=== PATIENT | male | born 1975 | race Caucasian/White ===

== ENCOUNTER 2017-10-07 00:50 | Inpatient (IN) ==
[2017-10-07] MEDS ORDERED: Isovue-370 500 ML INFUS..BTL IV ONE (03:15)
[2017-10-07] MEDS ORDERED: *HR* FentaNYL (PF) 100 MCG/2 ML VIAL IVP ONE (03:15)
[2017-10-07] MEDS ORDERED: Ondansetron 4 MG/2 ML VIAL IVP ONE ×2 (03:16→17:32)
[2017-10-07] MEDS ORDERED: 0.9 % Sodium Chloride 1,000 ML IVC ONE (03:16)
--- NOTE | 2017-10-07 03:19 | Emergency Department Note ---
Disposition Clinical Impression: Acute appendicitis with appendiceal abscess, Renal mass Abdominal pain Qualifiers: Abdominal location: right lower quadrant Qualified Code(s): R10.31 - Right lower quadrant pain Disposition: Admitted As Inpatient Condition: Good Referrals: Leonel Bishop MD [Primary Care Provider] - Forms: ED Satisfaction Letter, Work/School Release Time of Disposition: 04:45 Abdominal Pain HPI - General Chief Complaint: ED Abdominal Pain Stated Complaint: lower right quadrant pain Time Seen by Provider: 10/07/17 03:09 Source: patient Mode of arrival: ambulatory Limitations: no limitations Nursing Notes Reviewed: Yes Vital Signs Reviewed: Yes - History of Present Illness HPI Narrative: 42-year-old male with a history of hypertension presents for evaluation of abdominal pain. Patient states symptom onset was approximately 3 days ago and is noted to be epigastric. Patient subsequently felt nauseous and had episodes of emesis. Patient states that over the past 2 days the pain is now migrated to his right lower quadrant. Patient notes pain worse with palpation. Patient notes persistent emesis. Patient's had decreased oral intake related to the nausea vomiting. Patient also had some diarrhea today. Denies any fevers but does state that he had some sweats. Denies any chest pain or shortness of breath. Denies any urinary complaints. Patient denies a history of any abdominal surgeries. Patient states his last meal was approximately 10:00 last night. Pain Scale: 5 - Related Data Home Medications Medication Instructions Recorded Confirmed hydroCHLOROthiazide 25 mg PO DAILY 05/31/17 05/31/17 [Hydrochlorothiazide] Previous Rx's Medication Instructions Recorded Amoxicillin/Clavulanate [Augmentin] 875 mg PO BIDWM #20 tablet 05/31/17 Fluticasone Propionate Nasal 120 spray NS DAILY #1 bottle 05/31/17 [Flonase] GuaiFENesin/Dextromethorphan [Gs 5 ml PO QID #118 ml 05/31/17 Tussin Dm Max Liquid] Allergies Allergy/AdvReac Type Severity Reaction Status Date / Time No Known Allergies Allergy Verified 05/31/17 10:19 All systems ED: reviewed and negative except as stated. Constitutional: Denies: fever Cardiovascular: Denies: chest pain Respiratory: Denies: cough, dyspnea Gastrointestinal: Reports: abdominal pain, nausea, vomiting, diarrhea Abdominal Pain PMH - Past Medical History Medical history: Reports: hypertension Male Surgical History: Reports: no surgical history Psychiatric history: Reports: no psych history - Social History Smoking status: Never smoker Alcohol use: Reports: none Drug use: Reports: none Physical Exam - General Limitations: no limitations General appearance: alert, in no apparent distress, obese - Head Head exam: atraumatic, normocephalic, normal inspection - Eye Eye exam: Present: normal appearance, PERRL, EOMI - ENT ENT exam: normal exam, normal oropharynx, mucous membranes moist - Neck Neck exam: Present: normal inspection - Chest Chest inspection: Present: normal inspection, symmetric chest wall rise - Respiratory Respiratory exam: Present: normal lung sounds bilaterally - Cardiovascular Cardiovascular exam: Present: regular rate, normal rhythm. Absent: systolic murmur - Abdominal Exam Abdominal exam: Present: soft, tenderness, tenderness at McBurney's Point. Absent: guarding, rebound - Extremities Exam Extremities exam: Present: normal inspection. Absent: pedal edema - Neurological Exam Neurological exam: Present: alert, oriented X3 - Skin Skin exam: Present: warm, dry, intact, normal color Course Course Narrative: Patient has right lower quadrant tenderness. 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 Patient will get basic labs, IV pain medicine and antiemetics. Patient also get a CT scan of the abdomen and pelvis. - Reevaluation(s) Reevaluation #1: Patient seen and examined. Patient states the pain medicine has improved his symptoms. Still has some tenderness in the right lower quadrant. Time: 04:10 Reevaluation #2: Plan of care was discussed with the patient. Patient's abdominal exam is unchanged. Did address the concerns of likely renal cell carcinoma. All questions were answered at that time. Time: 04:50 - Consultations Consultation #1: Discussed the case with Dr. Regan who accepted the patient onto his service. Time: 04:44 Vital Signs Temperature 98.3 F 10/07/17 01:03 Pulse Rate 105 10/07/17 01:03 Respiratory Rate 14 10/07/17 01:03 Blood Pressure 116/77 10/07/17 01:03 O2 Sat by Pulse Oximetry 94 10/07/17 01:03 Temperature 98.3 F 10/07/17 01:03 Pulse Rate 97 10/07/17 04:28 Respiratory Rate 18 10/07/17 04:28 Blood Pressure 103/61 10/07/17 04:28 O2 Sat by Pulse Oximetry 96 10/07/17 04:28 Oxygen Delivery Oxygen Delivery Room Air Abdominal Pain - MDM Narrative Medical decision making narrative: Patient presented for concerns of an acute appendicitis. Patient does have evidence of periappendiceal abscess. Patient's pain was treated in emergency department. Antibiotics were initiated in the emergency department. Patient incidentally also had a renal mass which was concerning for renal cell carcinoma. This information was discussed and relayed with the patient. Discussed the case with the on-call surgeon who accepted the patient onto his service. Patient's vitals are stable in the emergency department. Patient's abdomen is not peritoneal but is tenderness over McBurney's. - Lab Data Lab results reviewed: Yes I reviewed the patient's lab results. Result diagrams: 10/07/17 03:38 10/07/17 03:38 Lab Results 10/07/17 10/07/17 10/07/17 Range/Units 02:30 03:38 03:38 WBC 19.8 H (4.3-11.1) K/mcL RBC 5.21 (4.19-5.50) M/mcL Hgb 15.6 (12.9-16.9) g/dL Hct 43.3 (37.5-50.1) % MCV 83.1 (83.0-100.0) fL MCH 29.9 (28.0-33.3) pg MCHC 36.0 H (31.6-35.5) g/dL RDW 11.9 (11.5-14.5) % Plt Count 339 (140-400) K/mcL MPV 9.5 (9.4-12.4) fL Immature Gran % 0.8 (0-4) % Seg Neutrophils % 85.0 % Lymphocytes % 6.1 % Monocytes % 7.8 % Eosinophils % 0.1 % Basophils % 0.2 % Neutrophils # 16.9 H (1.6-8.9) K/mcL Lymphocytes # 1.2 (0.6-4.6) K/mcL Monocytes # 1.5 H (0.0-1.3) K/mcL Eosinophils # 0.0 (0.0-0.6) K/mcL Basophils # 0.0 (0.0-0.2) K/mcL Sodium 127 L (136-145) mEq/L Potassium 3.2 L (3.5-5.1) mEq/L Chloride 90 L (98-107) mEq/L Carbon Dioxide 22 L (23-29) mEq/L BUN 32 H (6-20) mg/dL Creatinine 1.27 (0.70-1.30) mg/dL Est GFR ( Amer) > 60 (> 60) Est GFR (Non-Af Amer) > 60 (> 60) BUN/Creatinine Ratio 25 (6-26) Glucose 183 H (70-105) mg/dL Calculated Osmolality 276 L (280-300) Calcium 9.2 (8.6-10.3) mg/dL Total Bilirubin 1.0 (0.3-1.0) mg/dL Direct Bilirubin 0.4 H (0.0-0.2) mg/dL Indirect Bilirubin 0.6 (0.0-1.2) mg/dL AST 15 (13-39) Units/L ALT 29 (7-52) Units/L Alkaline Phosphatase 67 (34-104) Units/L Serum Total Protein 7.4 (6.4-8.9) g/dL Albumin 3.9 (3.5-5.7) g/dL Globulin 3.5 (2.4-3.5) g/dL Albumin/Globulin Ratio 1.1 (1.1-2.2) Lipase 9 L (11-82) Units/L Urine Color Dark Yellow (Yellow) Urine Clarity Clear (Clear) Urine pH 5.5 (5.0-8.0) pH Units Ur Specific Success 1.025 (1.010-1.025) Urine Protein 30 H (Neg-Trace) mg/dL Urine Glucose (UA) Normal (Normal) mg/dL Urine Ketones 15 H (Negative) mg/dL Urine Blood Negative (Negative) Urine Nitrite Negative (Negative) Urine Bilirubin Moderate H (Negative) Urine Urobilinogen Normal (Normal) mg/dL Ur Leukocyte Esterase Negative (Negative) Ur Culture Indicated? NO (NO) - Radiology Data Radiology results reviewed: Yes I reviewed the patient's radiology results. Abdomen/Pelvis CT 10/07/17 03:15 IMPRESSION: Findings consistent with acute appendicitis with appendicular abscess and periappendiceal abscess measuring 3.2 x 2.6 x 2.3 cm in size. Left upper pole renal cortical mass measuring 7.9 x 7.3 x 7.4 cm in size. This should be treated as a renal cell carcinoma until proven otherwise. Hepatic steatosis with focal fatty sparing at the gallbladder fossa. Critical results were called by Dr. Nicho Spicer MD to Evelio Alex on 10/07/2017 at 04:36. D/ / Nicho Spicer MD / Nicho Spicer MD Interpreting Provider: MD Marimar Perez - Marimar Situation: Demographics Background: Presenting Complaint Assessment: Vital Signs, Patient/Family Expectation Recommendation: Barrier(s) to disposition, Recommendation based on pending studies, treatments, or consults S.B.APaulina Report Given to: Dr. Jass Minaya Repor Time: 04:43
[2017-10-07 03:41] LABS: Bilirubin,Urine Moderate (Negative); Blood,Urine Negative (Negative); Color,Urine Dark Yellow (Yellow); Glucose,Urine (UA) Normal (Normal); Ketones,Urine 15 mg/dL (Negative); Leukocyte Esterase,Urine Negative (Negative); Nitrite,Urine Negative (Negative); PH,Urine 5.5 pH Units (5.0-8.0); Protein,Urine 30 mg/dL (Neg-Trace); Specific Gravity,Urine 1.025 (1.010-1.025); Urobilinogen,Urine Normal (Normal)
[2017-10-07 03:42] LABS: Clarity,Urine Clear (Clear)
[2017-10-07 03:54] LABS: Basophils % 0.2 %; Eosinophils % 0.1 %; Hematocrit 43.3 % (37.5-50.1); Hemoglobin 15.6 g/dL (12.9-16.9); Immature Granulocytes % 0.8 % (0-4); Lymphocytes # 1.2 K/mcL (0.6-4.6); Lymphocytes % 6.1 %; Mean Corpuscular Hemoglobin 29.9 pg (28.0-33.3); Mean Corpuscular Volume 83.1 fL (83.0-100.0); Mean Platelet Volume 9.5 fL (9.4-12.4); Monocytes # 1.5 K/mcL (0.0-1.3); Monocytes % 7.8 %; Neutrophils # 16.9 K/mcL (1.6-8.9); Platelet Count 339 K/mcL (140-400); Red Blood Count 5.21 M/mcL (4.19-5.50); Red Cell Distribution Width 11.9 % (11.5-14.5)
[2017-10-07 04:06] LABS: Alanine Aminotransferase 29 Units/L (7-52); Albumin 3.9 g/dL (3.5-5.7); Albumin/Globulin Ratio 1.1 (1.1-2.2); Alkaline Phosphatase 67 Units/L (34-104); Aspartate Amino Transferase 15 Units/L (13-39); BUN/Creatinine Ratio 25 (6-26); Bilirubin,Direct 0.4 mg/dL (0.0-0.2); Bilirubin,Indirect 0.6 mg/dL (0.0-1.2); Blood Urea Nitrogen 32 mg/dL (6-20); Calcium 9.2 mg/dL (8.6-10.3); Carbon Dioxide 22 mEq/L (23-29); Chloride 90 mEq/L (98-107); Globulin 3.5 g/dL (2.4-3.5); Glucose 183 mg/dL (70-105); Lipase 9 Units/L (11-82); Osmolality,Calculated 276 (280-300); Potassium 3.2 mEq/L (3.5-5.1); Sodium 127 mEq/L (136-145); Total Protein 7.4 g/dL (6.4-8.9); eGFR For African Americans > 60 (> 60); eGFR For Non-African Americans > 60 (> 60)
[2017-10-07] MEDS ORDERED: cefOXitin 2,000 MG in Water for inj. (sterile) 20 ML 20 ML IVPB ONE (04:25)
[2017-10-07] MEDS ORDERED: Piperacillin/Tazobactam 3.375 GM in 0.9 % Sodium Chloride Mini Bag 100 ML IVPB ONE (04:42)
[2017-10-07] MEDS ORDERED: 0.9 % Sodium Chloride 500 ML IVC ONE (05:42)
[2017-10-07] MEDS ORDERED: 0.9 % Sodium Chloride 1,000 ML IVC SCH (05:45)
[2017-10-07] MEDS: Ondansetron 4 MG/2 ML VIAL IVP PRN ×3 (06:32→15:43)
[2017-10-07] MEDS: *HR* OxyCODONE Immed Rel 5 MG TABLET PO PRN ×3 (06:33→15:43)
--- NOTE | 2017-10-07 07:24 | Emergency Department Note ---
Disposition Clinical Impression: Acute appendicitis with appendiceal abscess, Renal mass Abdominal pain Qualifiers: Abdominal location: right lower quadrant Qualified Code(s): R10.31 - Right lower quadrant pain Disposition: Admitted As Inpatient Condition: Good General Adult HPI - General Chief complaint: ED Abdominal Pain Stated complaint: lower right quadrant pain Time Seen by Provider: 10/07/17 03:09 Source: patient Mode of arrival: ambulatory Limitations: no limitations Nursing Notes Reviewed: Yes Vital Signs Reviewed: Yes - History of Present Illness Pain Scale: 2 - Related Data Home Medications Medication Instructions Recorded Confirmed Lisinopril/Hydrochlorothiazide 2 each PO DAILY 10/07/17 10/07/17 [Zestoretic 20-12.5 mg Tablet] Allergies Allergy/AdvReac Type Severity Reaction Status Date / Time No Known Allergies Allergy Verified 05/31/17 10:19 Constitutional: Denies: fever Cardiovascular: Denies: chest pain Respiratory: Denies: cough, dyspnea Gastrointestinal: Reports: abdominal pain, nausea, vomiting, diarrhea Past Medical History - Past Medical History Medical history: Reports: hypertension Surgical history: Reports: no surgical history Psychiatric history: Reports: no psych history - Social History Smoking Status: Never smoker Smokeless Tobacco Status: No Alcohol use: Reports: none Drug use: Reports: none Physical Exam - General Limitations: no limitations General appearance: alert, in no apparent distress, obese Course Vital Signs Temperature 98.3 F 10/07/17 01:03 Pulse Rate 105 10/07/17 01:03 Respiratory Rate 14 10/07/17 01:03 Blood Pressure 116/77 10/07/17 01:03 O2 Sat by Pulse Oximetry 94 10/07/17 01:03 Temperature 98 F 10/07/17 05:28 Pulse Rate 100 10/07/17 05:28 Respiratory Rate 16 10/07/17 05:28 Blood Pressure 109/62 10/07/17 05:28 O2 Sat by Pulse Oximetry 95 10/07/17 05:28 Oxygen Delivery Oxygen Delivery Room Air Medical Decision Making - Lab Data Result diagrams: 10/07/17 03:38 10/07/17 03:38 Lab Results 10/07/17 10/07/17 10/07/17 Range/Units 02:30 03:38 03:38 WBC 19.8 H (4.3-11.1) K/mcL RBC 5.21 (4.19-5.50) M/mcL Hgb 15.6 (12.9-16.9) g/dL Hct 43.3 (37.5-50.1) % MCV 83.1 (83.0-100.0) fL MCH 29.9 (28.0-33.3) pg MCHC 36.0 H (31.6-35.5) g/dL RDW 11.9 (11.5-14.5) % Plt Count 339 (140-400) K/mcL MPV 9.5 (9.4-12.4) fL Immature Gran % 0.8 (0-4) % Seg Neutrophils % 85.0 % Lymphocytes % 6.1 % Monocytes % 7.8 % Eosinophils % 0.1 % Basophils % 0.2 % Neutrophils # 16.9 H (1.6-8.9) K/mcL Lymphocytes # 1.2 (0.6-4.6) K/mcL Monocytes # 1.5 H (0.0-1.3) K/mcL Eosinophils # 0.0 (0.0-0.6) K/mcL Basophils # 0.0 (0.0-0.2) K/mcL Sodium 127 L (136-145) mEq/L Potassium 3.2 L (3.5-5.1) mEq/L Chloride 90 L (98-107) mEq/L Carbon Dioxide 22 L (23-29) mEq/L BUN 32 H (6-20) mg/dL Creatinine 1.27 (0.70-1.30) mg/dL Est GFR ( Amer) > 60 (> 60) Est GFR (Non-Af Amer) > 60 (> 60) BUN/Creatinine Ratio 25 (6-26) Glucose 183 H (70-105) mg/dL Calculated Osmolality 276 L (280-300) Calcium 9.2 (8.6-10.3) mg/dL Total Bilirubin 1.0 (0.3-1.0) mg/dL Direct Bilirubin 0.4 H (0.0-0.2) mg/dL Indirect Bilirubin 0.6 (0.0-1.2) mg/dL AST 15 (13-39) Units/L ALT 29 (7-52) Units/L Alkaline Phosphatase 67 (34-104) Units/L Serum Total Protein 7.4 (6.4-8.9) g/dL Albumin 3.9 (3.5-5.7) g/dL Globulin 3.5 (2.4-3.5) g/dL Albumin/Globulin Ratio 1.1 (1.1-2.2) Lipase 9 L (11-82) Units/L Urine Color Dark Yellow (Yellow) Urine Clarity Clear (Clear) Urine pH 5.5 (5.0-8.0) pH Units Ur Specific Gordon 1.025 (1.010-1.025) Urine Protein 30 H (Neg-Trace) mg/dL Urine Glucose (UA) Normal (Normal) mg/dL Urine Ketones 15 H (Negative) mg/dL Urine Blood Negative (Negative) Urine Nitrite Negative (Negative) Urine Bilirubin Moderate H (Negative) Urine Urobilinogen Normal (Normal) mg/dL Ur Leukocyte Esterase Negative (Negative) Ur Culture Indicated? NO (NO) Critical Care Time Critical Care Time: Yes Total Critical Care Time: 35 Attestation: Critical care performed: Time is exclusive of separately billable procedures. Time includes: direct patient care, patient reassessment, coordination of patient care, interpretation of data (laboratory data, radiology data, and respiratory data), review of patient's medical records, medical consultation and documentation of patient care. Procedures included in critical care time: Procedures excluded from critical care time: Attestation Statement - Attestation Attestation: ICarlos MD, personally evaluated this patient and discussed their management with the resident physician. I reviewed the resident's note and agree with the documented findings, medical decision making, and plan of care. 42-year-old male presents to the emergency department with a complaint of abdominal pain which started 4 days ago. Pain was initially in the periumbilical area and then 3 days ago migrated to the right lower quadrant. The pain is been constant since. There has been some nausea and vomiting and anorexia. No known fever. No melena, hematemesis, or hematochezia. No hematuria or dysuria. No flank pain. No prior abdominal surgeries. On examination patient is a well-developed obese male in no acute distress. He is alert and oriented 3. There is no cyanosis or diaphoresis. Breath sounds are clear and equal bilaterally. Heart regular rate and rhythm. Abdomen is soft with normal bowel sounds. There is mild to moderate tenderness on direct palpation in the right lower quadrant with no ordering or rebound tenderness. No CVA tenderness. Labs reviewed. WBC 19.8. CT of the abdomen and pelvis shows acute appendicitis with a periappendiceal abscess. CT also showed a large left renal mass, likely renal cell carcinoma. Dr. Alex discussed the results of the CT with the patient and family. The surgeon unionmelt operator, Dr. Regan, was consulted and accepted admission of the patient to his service. IV antibiotics initiated.
--- NOTE | 2017-10-07 10:02 | General Surg History&Physical ---
Date of Encounter: 10/07/17 Time of Encounter: 09:00 History of Present Illness Chief complaint: Acute appendicitis HPI: Mr. Frias is a 42 year old male referred to surgical services after presenting to the [facility] ED with 4-5 day history of progressive right lower quadrant abdominal pain. Symptoms started vaguely mid abdomen but slowly increased in severity and and migrated to the lower right lower quadrant. The patient admits to multiple episodes of emesis in the last few days The patient presented to the emergency department for further evaluation and treatment. This evaluation included examination, lab work and CT of the abdomen and pelvis. The patient had focal tenderness in the right lower quadrant, leukocytosis of 19.8 with 16.9% neutrophils, sodium of 127, potassium 3.2, BUN 32 and a creatinine of 1.27. CT abdomen and pelvis demonstrated diffuse hepatic steatosis with focal fatty sparing near the gallbladder fossa; left upper pole renal mass measuring 7.9 x 7.3 x 7.4 cm, and a dilated appendix measuring 12 mm with extensive periappendiceal inflammatory changes and fat stranding. Sigmoid diverticulosis without inflammation was also noted. These findings are consistent with acute appendicitis prompting the surgical referral. Past medical history: Obesity, hypertension Surgical history: Tonsillectomy Allergies no known drug allergies Medications: Lisinopril Social history: Patient is , lives this past; he has never smoked, he denies alcohol or illicit drug use. Physical examination: Age-appropriate morbidly obese patient, resting comfortably in his hospital bed. The patient has been afebrile and hemodynamically stable since presentation to the emergency room. Current temperature 97.5, pulse 99, respirations 16, blood pressure 116/74. SPO2 on room air 95% The patient is 1.8 m tall, 146.2 kg, BMI 45.0 Skin is warm, without obvious jaundice Cardiac: Rate was regular, approximately 100 bpm, no audible murmurs Lungs: Clear; no abdominal pain on deep inspiration Abdomen protuberant soft with tenderness in the right lower quadrant. No detected intra-abdominal masses. No rebound. Bowel sounds were hypoactive Extremities without clubbing, cyanosis or edema. CT abdomen/pelvis reviewed with Caryn Radiology Impression: 42-year-old male with acute appendicitis and concomitant findings of a left renal mass suggestive of neoplasm. Hypertension Obesity with hepatic steatosis The patient's significant electrolyte abnormalities are likely related to the several day history of illness, poor oral intake as well as nausea and vomiting. These abnormalities are expected to resolve following the appendectomy and control the patient's nausea/vomiting. The immediate risk to the patient is acute appendicitis. This was discussed in detail. I have recommended surgery. The patient is a reasonable candidate for laparoscopic appendectomy but understands an open appendectomy may become necessary. Risks of surgery include hemorrhage, infection, intra-abdominal abscess, injury to adjacent structures, pneumonia , respiratory failure, and cardiac risks such as dysrhythmia or ID. Alternative therapy includes IV antibiotics and serial abdominal exams. This may allow the acute inflammatory changes to resolve but this is associated with increased risk of perforation as well as recurrent appendicitis in the future. The renal mass was discussed and will be addressed in the postoperative period following the patient's appendectomy. The patient and his attendant family have expressed understanding and are willing to proceed with surgery. Consent has been obtained. Past Med Surg Social Fam HX - Past Medical History Medical history: hypertension Psychiatric history: no psych history - Past Surgical History Surgical History: no surgical history - Social History Smoking Status: Never smoker Smokeless Tobacco Status: No Alcohol use: none Drug use: none Medications and Allergies Lisinopril/Hydrochlorothiazide [Zestoretic 20-12.5 mg Tablet] 2 each PO DAILY [History] 3 Allergy/AdvReac Type Severity Reaction Status Date / Time No Known Allergies Allergy Verified 05/31/17 10:19 Review of Systems All systems PM: The remainder of the systems were reviewed and are negative General Surgery Exam Initial Vital Signs Temp Pulse Resp BP Pulse Ox 98.3 F 105 14 116/77 94 10/07/17 01:03 10/07/17 01:03 10/07/17 01:03 10/07/17 01:03 10/07/17 01:03 Results - Labs 10/07/17 03:38 10/07/17 03:38 Abnormal lab results WBC 19.8 K/mcL (4.3-11.1) H 10/07/17 03:38 MCHC 36.0 g/dL (31.6-35.5) H 10/07/17 03:38 Neutrophils # 16.9 K/mcL (1.6-8.9) H 10/07/17 03:38 Monocytes # 1.5 K/mcL (0.0-1.3) H 10/07/17 03:38 Sodium 127 mEq/L (136-145) L 10/07/17 03:38 Potassium 3.2 mEq/L (3.5-5.1) L 10/07/17 03:38 Chloride 90 mEq/L (98-107) L 10/07/17 03:38 Carbon Dioxide 22 mEq/L (23-29) L 10/07/17 03:38 BUN 32 mg/dL (6-20) H 10/07/17 03:38 Glucose 183 mg/dL (70-105) H 10/07/17 03:38 POC Glucose 151 mg/dL (70-99) H 10/07/17 05:32 Calculated Osmolality 276 (280-300) L 10/07/17 03:38 Direct Bilirubin 0.4 mg/dL (0.0-0.2) H 10/07/17 03:38 Lipase 9 Units/L (11-82) L 10/07/17 03:38 Urine Protein 30 mg/dL (Neg-Trace) H 10/07/17 02:30 Urine Ketones 15 mg/dL (Negative) H 10/07/17 02:30 Urine Bilirubin Moderate (Negative) H 10/07/17 02:30 All other labs normal.
[2017-10-07] MEDS ORDERED: Piperacillin/Tazobactam 3.375 GM in 0.9 % Sodium Chloride Mini Bag 100 ML IVPB SCH (13:00)
[2017-10-07] MEDS ORDERED: Bupivacaine/EPI 1:200k 0.25%PF 10 ML VIAL INFILT ONE (16:29)
[2017-10-07] MEDS ORDERED: *HR* FentaNYL (PF) 100 MCG/2 ML VIAL ONE (16:37)
[2017-10-07] MEDS ORDERED: *HR* Propofol 200 MG/20 ML VIAL IVP ONE (16:38)
[2017-10-07] MEDS ORDERED: *HR* Midazolam HCl 2 MG/2 ML VIAL ONE (16:38)
[2017-10-07] MEDS ORDERED: *HR* Rocuronium Bromide 50 MG/5 ML VIAL ONE (16:39)
[2017-10-07] MEDS ORDERED: Lidocaine -MPF 2% 2 ML VIAL ONE (16:39)
[2017-10-07] MEDS ORDERED: *HR* Succinylcholine 200 MG/10 ML VIAL IVP ONE (16:39)
[2017-10-07] MEDS ORDERED: Ondansetron 4 MG/2 ML VIAL ONE (16:41)
[2017-10-07] MEDS ORDERED: Dexamethasone 4 MG/ML VIAL ONE (16:41)
--- NOTE | 2017-10-07 16:58 | Anesthesia Evaluation PreOp ---
Date of Encounter: 10/07/17 Time of Encounter: 16:56 - Past History Planned Operation: Lap Appendectomy Cardiac History: HTN Pulmonary History: Snore, Gasp/choke asleep (Likely ALEX) WINDOW MACHINE OPERATOR History: Denies Any Significant HX Other Medical History: Denies Any Significant HX Anesthesia History: No Prior Anesthetic Complications, Past Anesthesia (Tonsils) Alcohol Use: none Drug use: none Medications and Allergies Lisinopril/Hydrochlorothiazide [Zestoretic 20-12.5 mg Tablet] 2 each PO DAILY [History] 3 Allergy/AdvReac Type Severity Reaction Status Date / Time No Known Allergies Allergy Verified 05/31/17 10:19 - Meds/Allergy Pre-op Review Medications Reviewed: Yes Allergies Reviewed: Yes Beta Blockers on Current Med List: No Anesthesia Results - Labs 10/07/17 03:38 10/07/17 03:38 Anesthesia Exam O2 Sat Height 1.8 m Weight 146.2 kg BMI 45 Vital Signs Temp Pulse Resp BP Pulse Ox 98.3 F 105 14 116/77 94 10/07/17 01:03 10/07/17 01:03 10/07/17 01:03 10/07/17 01:03 10/07/17 01:03 NPO (# of Hours): >8 - HEENT Pupil (Motor): Pupils equal Mallampati: II Teeth: Normal Oral Opening: Greater than 3 - WINDOW MACHINE OPERATOR LOC: Oriented - Cardiac Rhythm: Regular - Pulmonary Breath Sounds: bilateral Clear Anesthesia Assess/Plan ASA Score: 3 Modified [place] Bottom Scale for Level of Consciousness: Cooperative, oriented, and tranquil (Anxious) Anesthetic Plan: General Monitoring Plan: Standard Monitors Recovery Plan: PACU Anes Supervising Prov Stmt: Patient informed and consented. Risks, benefits, and alternatives discussed. Patient wishes to proceed.
[2017-10-07] MEDS ORDERED: *HR* PHENYLEPHRINE 1,000 MCG/10 ML SYRINGE IVP ONE (17:23)
[2017-10-07] MEDS ORDERED: *HR* Labetalol 20 MG/4 ML SYRINGE IVP PRN (17:32)
[2017-10-07] MEDS ORDERED: *HR* OxyCODONE Immed Rel 5 MG TABLET PO PRN (17:32)
[2017-10-07] MEDS ORDERED: *HR* Promethazine 25 MG/ML VIAL IVP PRN (17:32)
[2017-10-07] MEDS ORDERED: Neostigmine Methylsulfate 3 MG/3 ML SYRINGE ONE (17:37)
[2017-10-07] MEDS ORDERED: Bupivacaine/EPI 1:200k 0.5%PF 10 ML VIAL ONE (18:10)
--- NOTE | 2017-10-07 18:34 | Operative Note ---
Date of procedure: 10/07/17 Pre-op diagnosis: acute appendicitis Post-op diagnosis: other (Acute perforated retrocecal appendicitis) Procedure: Laparoscopy, open appendectomy Complications: Perforated acute appendicitis Anesthesia: GETA Local Anesthetics: 0.25% Sensorcaine HCL with Epinephrine 1:200,000 SubQ (cc) ( 35 mL) Surgeon: Kenny Regan Was there an server service assistant present: No Estimated blood loss (cc): 150 IV fluids (cc): 1,500 Specimen: appendix(fragmented) Condition: stable Disposition: PACU Procedure in Detail: The patient was brought to the operating room where he was placed supine on the operating room table. The patient was appropriately identified as to person and procedure. The accuracy of this information was confirmed by the patient and procedure team. The patient was intubated and anesthetized under the supervision of . The abdomen was prepped and draped in usual sterile fashion. Several milliliters of 0.25% bupivacaine with 1-200,000 epinephrine was infiltrated into the infraumbilical skin. A small transverse incision was made with dissection extended to the fascia., Elevated, and infiltrated with additional bupivacaine with epinephrine prior to incising the fascia. An 11 mm Xcel port was established. The rigid laparoscope was placed within the obturator to visualize passage through the layers of the anterior abdominal wall. The abdominal cavity was accessed it was insufflated with gaseous carbon dioxide, the obturator was replaced by the rigid laparoscope. There was no obvious visible injury from establishing this port. Under direct visualization a 5 mm port was established in the midline suprapubic abdomen and a 12 mm port established in the left lower quadrant midclavicular line. Both of these sites were infiltrated with the bupivacaine with epinephrine solution. Using endoscopic [place] the cecum was identified and elevated. An acutely inflamed retrocecal appendix was encountered. The cecum was adherent to the lateral peritoneal wall. As the cecum was mobilized it was apparent that the appendix was necrotic and perforated. The cecum was mobilized laparoscopically but ultimately, I determined that the patient would require an open appendectomy. Transverse incision cephalad and medial to the anterior superior iliac spine was planned. Several milliliters of 0.25% bupivacaine with 1-200,000 units epinephrine was infiltrated into the skin and subcutaneous tissue. A transverse incision was made. Dissection extended to the fascia. Bleeding points were controlled with electrocautery. The aponeurosis external oblique was incised transversely. The oblique musculature was split in the direction of their fibers. The transversalis fascia was grasped with 2 Sharee clamps elevated and incised. This allowed atraumatic entry into the abdominal cavity. The cecum was exteriorized and the junction of the appendix with the cecum was identified. The mesoappendix was resected to allow placement of an Ethicon [place] 45 mm stapler at the junction of the appendix with the cecum. Once the appendix was divided. It was necessary to extract the retrocecal portion of the appendix in pieces. The ends were collected and sent to pathology. The appendiceal artery was identified and transected with a second application of the Ethicon [place] stapler using a vascular cartridge. The right paracolic gutter and pelvis were irrigated with warm sterile saline which was evacuated with suction device. Stasis appeared to be adequate and the 2 staple lines appeared to be intact. The abdominal incision was closed in layers. The peritoneum was closed with running interlocking 0 Vicryl. The fascia was approximated with interrupted [id number] 0 Vicryl. Additional bupivacaine with epinephrine was infiltrated into the fascial layers. The cutaneous tissue was reapproximated with running 3-0 Vicryl. Images were approximated with dolores. The fascia of the infraumbilical port site was closed with interrupted [id number] 0 Vicryl using S retractors. The skin edges of the port sites were approximated with dolores. Dry sterile dressings were applied. The patient was taken to recovery in stable condition. Needle, sponge, and instrument counts were correct at the close of the case. Total volume of 0.25% bupivacaine with 1-200,000 units epinephrine, 35 mL.
[2017-10-07] MEDS ORDERED: *HR* HYDROmorphone (PF) 1 MG/ML SYRINGE IVP PRN (18:52)
[2017-10-07] MEDS: MORPHINE SUL Oral CONC 10 MG/0.5 ML ORAL.SYG SL PRN ×2 (18:52→19:02)
[2017-10-07] MEDS: *HR* Morphine 2 MG/ML SYRINGE IVP PRN ×3 (19:05→19:17)
[2017-10-07] MEDS ORDERED: Acetaminophen IV 1,000 MG/100 ML INFUS..BTL IVPB ONE (19:47)
--- NOTE | 2017-10-07 19:55 | Anesthesia Evaluation Post Op ---
Date of Encounter: 10/07/17 Time of Encounter: 19:53 - Vital Signs Vital Signs: Vital Signs Temperature 98.3 F 10/07/17 01:03 Pulse Rate 105 10/07/17 01:03 Respiratory Rate 14 10/07/17 01:03 Blood Pressure 116/77 10/07/17 01:03 O2 Sat by Pulse Oximetry 94 10/07/17 01:03 Temperature 98.5 F 10/07/17 19:38 Pulse Rate 93 10/07/17 19:38 Respiratory Rate 16 10/07/17 19:38 Blood Pressure 107/70 10/07/17 19:38 O2 Sat by Pulse Oximetry 95 10/07/17 19:38 Oxygen Delivery Oxygen Delivery Room Air - Lungs Lungs: Clear Ascult./Percussion - Airway Airway: Non-obstructed - Cardiovascular Regular Rate - Mental Status Mental Status: Alert & Oriented, Answers Appropriately - Pain Pain Scale: 6 (ordered ofirmev, tolerable pain) Pain Scale used: Numeric (1 - 10) - Nausea Vomiting Nausea Vomiting: Not Present - Hydration Hydration: Ice chips, Has not voided - Discharge PostOp Status: Transfer Patient to floor
[2017-10-07] MEDS: Ringers Solution, Lactated 1,000 ML IVC SCH (22:23)
[2017-10-07] MEDS: Albuterol 2.5 MG/3 ML NEBULIZER IH SCH ×2 (22:25→23:42)
[2017-10-08] MEDS: *HR* OxyCODONE Immed Rel 5 MG TABLET PO PRN ×4 (00:27→20:08)
[2017-10-08] MEDS: Piperacillin/Tazobactam 3.375 GM in 0.9 % Sodium Chloride Mini Bag 100 ML IVPB SCH ×3 (03:27→19:26)
[2017-10-08] MEDS: Albuterol 2.5 MG/3 ML NEBULIZER IH SCH ×5 (03:36→20:35)
[2017-10-08] MEDS: Ringers Solution, Lactated 1,000 ML IVC SCH (05:50)
[2017-10-08 06:00] LABS: Basophils % 0.1 %; Hematocrit 38.5 % (37.5-50.1); Immature Granulocytes % 0.5 % (0-4); Lymphocytes # 0.7 K/mcL (0.6-4.6); Lymphocytes % 3.1 %; Mean Corpuscular HGB Conc 34.3 g/dL (31.6-35.5); Mean Corpuscular Hemoglobin 29.1 pg (28.0-33.3); Mean Corpuscular Volume 84.8 fL (83.0-100.0); Mean Platelet Volume 9.6 fL (9.4-12.4); Monocytes # 1.8 K/mcL (0.0-1.3); Monocytes % 8.3 %; Platelet Count 322 K/mcL (140-400); Red Blood Count 4.54 M/mcL (4.19-5.50); Red Cell Distribution Width 12.1 % (11.5-14.5)
[2017-10-08 06:19] LABS: BUN/Creatinine Ratio 21 (6-26); Blood Urea Nitrogen 17 mg/dL (6-20); Calcium 8.8 mg/dL (8.6-10.3); Carbon Dioxide 26 mEq/L (23-29); Chloride 97 mEq/L (98-107); Glucose 201 mg/dL (70-105); Osmolality,Calculated 283 (280-300); Potassium 3.9 mEq/L (3.5-5.1); Sodium 133 mEq/L (136-145); eGFR For African Americans > 60 (> 60); eGFR For Non-African Americans > 60 (> 60)
[2017-10-08 06:24] LABS: Hemoglobin 13.2 g/dL (12.9-16.9)
[2017-10-08] MEDS: Lisinopril-HCTZ 20-12.5mg TABLET PO SCH (08:44)
--- NOTE | 2017-10-08 09:33 | General Surgery Progress Note ---
Date of Encounter: 10/08/17 Time of Encounter: 09:33 Subjective Patient reports: still having pain, pain is less, tolerating liquids well Narrative: General Surgery - POD #1 Patient feeling well, indicates that his abdominal pain persists but is diminished. Incisional pain as expected. Patient is afebrile, hemodynamically stable with pulse 88 and 97, respirations 18, blood pressure 104/68. SPO2 on 3 L/min nasal cannula 94% Lungs: Clear; no obvious abdominal pain on deep inspiration Cardiac: Regular rate, no appreciable murmurs Abdomen protuberant; tender in the right lower quadrant/lower flank region corresponding to the location of the acutely perforated appendicitis Active bowel sounds; tolerating clear liquids without nausea or vomiting. Incisions are clean and dry. Urine output adequate following surgery - approximately 1000 mL recorded for this calendar day Labs: White count 21.6, neutrophils 19.0%; likely response to surgery; hemoglobin 13.2, hematocrit 38.5. Platelet count 322,000. Electrolytes improved; sodium 133, potassium 3.9, chloride 97. BUN 17, creatinine 0.80. Impression: POD #1 - status post laparoscopy, open appendectomy for acute perforated appendicitis Acceptable postoperative status Plan: Continue IV antibiotics Encourage incentive spirometry and activity out of bed Advance diet. Objective Vital Signs - Last 8 Hours Temp Pulse Resp BP Pulse Ox 10/08/17 07:39 94 10/08/17 07:33 18 104/68 94 10/08/17 05:11 98.2 F 97 18 104/68 94 10/08/17 03:37 21 93 Intake and Output 10/07/17 10/08/17 10/08/17 23:59 07:59 15:59 Intake Total 100 / 100 1150 / 1150 100 / 100 Output Total 1000 / 1000 Balance 100 / -50 150 / 150 100 / 100 Intake: IV Fluids 100 / 100 1000 / 1000 100 / 100 Lactated Ringers 1,000 ML @ 125 1000 / 1000 mls/hr IVC .Q8H [facility] Rx#: [id number] Ofirmev 1,000 mg/100 ml 1,000 100 / 100 mg In 100 ml @ 400 mls/hr IVPB ONCE ONE Rx#:[id number] Zosyn 3.375 GM In 0.9 % Sodium 100 / 100 Chloride (Mini-Bag +) 100 ML @ 25 mls/hr IVPB Q8H [facility] Rx#: [id number] Oral 150 / 150 Output: Urine 1000 / 1000 - Labs 10/08/17 05:18 10/08/17 05:18 Diabetes panel 10/08/17 Range/Units 05:18 Sodium 133 L (136-145) mEq/L Potassium 3.9 (3.5-5.1) mEq/L Chloride 97 L (98-107) mEq/L Carbon Dioxide 26 (23-29) mEq/L BUN 17 (6-20) mg/dL Creatinine 0.80 (0.70-1.30) mg/dL Glucose 201 H (70-105) mg/dL Calcium 8.8 (8.6-10.3) mg/dL Calcium panel 10/08/17 Range/Units 05:18 Calcium 8.8 (8.6-10.3) mg/dL Pituitary panel 10/08/17 Range/Units 05:18 Sodium 133 L (136-145) mEq/L Potassium 3.9 (3.5-5.1) mEq/L Chloride 97 L (98-107) mEq/L Carbon Dioxide 26 (23-29) mEq/L BUN 17 (6-20) mg/dL Creatinine 0.80 (0.70-1.30) mg/dL Glucose 201 H (70-105) mg/dL Calcium 8.8 (8.6-10.3) mg/dL Adrenal panel 10/08/17 Range/Units 05:18 Sodium 133 L (136-145) mEq/L Potassium 3.9 (3.5-5.1) mEq/L Chloride 97 L (98-107) mEq/L Carbon Dioxide 26 (23-29) mEq/L BUN 17 (6-20) mg/dL Creatinine 0.80 (0.70-1.30) mg/dL Glucose 201 H (70-105) mg/dL Calcium 8.8 (8.6-10.3) mg/dL - VTE Documentation of Mechanical Device: Intermittent pneumatic compression device Consult Discharge Plan - Plan Referrals: Kenny Regan MD [Non-Partnered Physician] -
[2017-10-08] MEDS ORDERED: Acetaminophen 325 MG TABLET PO PRN (09:35)
[2017-10-08] MEDS ORDERED: *HR* Heparin 5,000 UNIT/ML VIAL SQ SCH (09:45)
[2017-10-08] MEDS: Ondansetron 4 MG/2 ML VIAL IVP PRN ×4 (13:20→22:37)
[2017-10-08] MEDS: *HR* Heparin 5,000 UNIT/ML VIAL SQ SCH (19:30)
[2017-10-08] MEDS: *HR* Promethazine 25 MG/ML VIAL IVP PRN ×2 (20:07→23:59)
[2017-10-09] MEDS: Albuterol 2.5 MG/3 ML NEBULIZER IH SCH ×6 (00:01→20:12)
[2017-10-09] MEDS: *HR* OxyCODONE Immed Rel 5 MG TABLET PO PRN ×2 (02:30→17:25)
[2017-10-09] MEDS: Piperacillin/Tazobactam 3.375 GM in 0.9 % Sodium Chloride Mini Bag 100 ML IVPB SCH ×3 (02:30→17:51)
[2017-10-09] MEDS: *HR* Promethazine 25 MG/ML VIAL IVP PRN ×2 (04:04→09:39)
[2017-10-09] MEDS: *HR* Heparin 5,000 UNIT/ML VIAL SQ SCH ×3 (04:12→19:55)
[2017-10-09] MEDS: Ondansetron 4 MG/2 ML VIAL IVP PRN (05:54)
[2017-10-09 06:36] LABS: Basophils # 0.1 K/mcL (0.0-0.2); Basophils % 0.2 %; Hematocrit 40.9 % (37.5-50.1); Hemoglobin 13.9 g/dL (12.9-16.9); Immature Granulocytes % 0.8 % (0-4); Lymphocytes # 1.1 K/mcL (0.6-4.6); Lymphocytes % 4.9 %; Mean Corpuscular Volume 85.4 fL (83.0-100.0); Mean Platelet Volume 9.6 fL (9.4-12.4); Monocytes # 1.7 K/mcL (0.0-1.3); Neutrophils # 18.7 K/mcL (1.6-8.9); Platelet Count 385 K/mcL (140-400); Red Blood Count 4.79 M/mcL (4.19-5.50); Red Cell Distribution Width 11.9 % (11.5-14.5); Segmented Neutrophils % 86.1 %
[2017-10-09] MEDS: Lisinopril-HCTZ 20-12.5mg TABLET PO SCH (09:09)
--- NOTE | 2017-10-09 11:28 | General Surgery Progress Note ---
Date of Encounter: 10/09/17 Time of Encounter: 11:20 Subjective Patient reports: no flatus, no bowel movement, other (nausea) Narrative: General Surgery - POD #2 Patient complaining of nausea, no emesis. No flatus or BM. Patient remains afebrile, most recently 98.4; pulse 96 and 99, respirations 18-20, blood pressure 120/79. SPO2 on 2 L/m nasal cannula 96% Lungs: Clear bilaterally; no obvious abdominal pain and deep inspiration Cardiac: Regular rate, no appreciable murmur Abdomen protuberant with expected tenderness in the right lower quadrant. Port sites and incision right lower quadrant intact, no obvious inflammation. No peritoneal signs or rebound. Few bowel sounds. Urine output: 400 mL for this calendar day. Laboratories: Persistent leukocytosis at 21.8; 18.7% neutrophils; hemoglobin 13.9, hematocrit 40.9. Impression/Plan: Postoperative day #2, status post laparoscopy converted to open appendectomy for acute perforated appendicitis Postoperative nausea with hypoactive bowel sounds most likely due to postoperative ileus. NPO except ice chips. Resume IV fluids Persistent leukocytosis without fever - continue antibiotics Postoperative pain controlled - reduce narcotic analgesics as they may be contributing to the patient's nausea Check electrolytes, BUN/creatinine, phosphorus, magnesium; address/correct any electrolyte abnormalities Left renal mass - likely malignant. Patient and family have requested referral to [facility] for further evaluation. This will be completed when the patient has sufficiently recovered from his acute appendicitis Hypertension - stable Objective Vital Signs - Last 8 Hours Temp Pulse Resp BP Pulse Ox 10/09/17 07:33 18 96 10/09/17 06:41 98.4 F 96 18 120/79 94 10/09/17 03:53 98.2 F 99 20 112/77 97 10/09/17 03:45 18 93 Intake and Output 10/08/17 10/09/17 10/09/17 23:59 07:59 15:59 Intake Total 100 / 100 100 / 100 Output Total 250 / 250 400 / 400 Balance -150 / -150 -300 / -300 Intake: IV Fluids 100 / 100 100 / 100 Zosyn 3.375 GM In 0.9 % Sodium 100 / 100 100 / 100 Chloride (Mini-Bag +) 100 ML @ 25 mls/hr IVPB Q8H [facility] Rx#: [id number] Oral 0 / 0 0 / 0 Output: Urine 250 / 250 400 / 400 Other: Weight 146.28 kg Blood Glucose* 163 180 Patient Weight 10/09/17 23:59 Weight 146.28 kg - Labs 10/09/17 05:58 10/08/17 05:18 - VTE Documentation of Mechanical Device: Intermittent pneumatic compression device Consult Discharge Plan - Plan Referrals: Kenny Regan MD [Non-Partnered Physician] -
[2017-10-09] MEDS: D5% in 0.45% NACL 1,000 ML IVC SCH (11:51)
[2017-10-09 12:06] LABS: BUN/Creatinine Ratio 22 (6-26); Blood Urea Nitrogen 16 mg/dL (6-20); Calcium 9.1 mg/dL (8.6-10.3); Carbon Dioxide 28 mEq/L (23-29); Chloride 95 mEq/L (98-107); Glucose 203 mg/dL (70-105); Osmolality,Calculated 281 (280-300); Potassium 4.2 mEq/L (3.5-5.1); Sodium 132 mEq/L (136-145); eGFR For African Americans > 60 (> 60); eGFR For Non-African Americans > 60 (> 60)
[2017-10-10] MEDS: Albuterol 2.5 MG/3 ML NEBULIZER IH SCH ×7 (00:18→23:38)
[2017-10-10] MEDS: Piperacillin/Tazobactam 3.375 GM in 0.9 % Sodium Chloride Mini Bag 100 ML IVPB SCH ×3 (03:41→20:11)
[2017-10-10] MEDS: *HR* Heparin 5,000 UNIT/ML VIAL SQ SCH ×3 (03:42→20:12)
[2017-10-10] MEDS: D5% in 0.45% NACL 1,000 ML IVC SCH ×2 (04:11→20:20)
[2017-10-10 05:59] LABS: Basophils # 0.1 K/mcL (0.0-0.2); Basophils % 0.5 %; Eosinophils % 0.2 %; Hematocrit 38.5 % (37.5-50.1); Hemoglobin 12.8 g/dL (12.9-16.9); Immature Granulocytes % 1.4 % (0-4); Lymphocytes # 2.1 K/mcL (0.6-4.6); Lymphocytes % 10.8 %; Mean Corpuscular HGB Conc 33.2 g/dL (31.6-35.5); Mean Corpuscular Volume 87.1 fL (83.0-100.0); Mean Platelet Volume 9.7 fL (9.4-12.4); Monocytes # 1.8 K/mcL (0.0-1.3); Monocytes % 9.4 %; Nucleated Red Blood Cells 0.2 /100 WBC (0); Platelet Count 371 K/mcL (140-400); Red Blood Count 4.42 M/mcL (4.19-5.50); Segmented Neutrophils % 77.7 %
[2017-10-10 06:07] LABS: Phosphorous 3.4 mg/dL (2.7-4.5)
[2017-10-10 06:08] LABS: BUN/Creatinine Ratio 29 (6-26); Blood Urea Nitrogen 22 mg/dL (6-20); Calcium 8.9 mg/dL (8.6-10.3); Carbon Dioxide 28 mEq/L (23-29); Chloride 96 mEq/L (98-107); Glucose 197 mg/dL (70-105); Osmolality,Calculated 283 (280-300); Potassium 3.5 mEq/L (3.5-5.1); Sodium 132 mEq/L (136-145); eGFR For African Americans > 60 (> 60); eGFR For Non-African Americans > 60 (> 60)
[2017-10-10 06:11] LABS: Neutrophils # 14.8 K/mcL (1.6-8.9)
[2017-10-10 06:39] LABS: Platelet Estimate Normal (Normal); Reactive Lymphocytes Present (Not Present)
[2017-10-10] MEDS: *HR* OxyCODONE Immed Rel 5 MG TABLET PO PRN ×2 (06:47→18:30)
--- NOTE | 2017-10-10 11:34 | General Surgery Progress Note ---
Date of Encounter: 10/10/17 Time of Encounter: 11:28 Subjective Patient reports: feels better Narrative: General Surgery - POD #3 Patient indicates he is feeling much improved; pain is controlled though narcotic dose has diminished. Nausea also resolved. Patient remains afebrile, currently 97.9, pulse 92-97; respirations 16, blood pressure 101/66. SPO2 on room air 93-97%. Lungs: Clear to auscultation, better inspiratory effort; oxygen successfully weaned Abdomen: Protuberant, soft, quiet. Tenderness diminished. No flatus or BM. Incisions: Transverse incision right lower quadrant demonstrated some erythema but no drainage; port sites intact. Urine output: Approximately 775 mL for the last 24 hours. Laboratories: White count has improved in 19.1, neutrophils have diminished to 14.8%; hemoglobin 12.8, hematocrit 38.5. Platelet count 371,000. Electrolytes notable for hyponatremia of 132, potassium borderline at 3.5, chloride 96, BUN 22, creatinine 0.76; magnesium 2.0, phosphorus 3.4 Operative pathology: Pending Impression: Postoperative day #3, status post laparoscopy converted to open appendectomy Improved in the last 24 hours; satisfactory postoperative status. Left renal mass - evaluation to be arranged once the acute inflammatory changes related to the acute perforated appendicitis have resolved Plan: Continue IV antibiotics Allow clear liquids; reduce IV fluids Continue to monitor leukocytosis and potassium Objective Vital Signs - Last 8 Hours Temp Pulse Resp BP Pulse Ox 10/10/17 07:40 16 97 10/10/17 06:38 97.9 F 97 16 101/66 93 10/10/17 03:53 97.9 F 92 18 103/68 92 Intake and Output 10/09/17 10/10/17 10/10/17 23:59 07:59 15:59 Intake Total 100 / 100 1000 / 1000 0 / 0 Output Total 375 / 375 350 / 350 Balance -275 / -275 650 / 650 0 / 0 Intake: IV Fluids 100 / 100 1000 / 1000 D5% And 0.45% Nacl 1000 Ml Bag 1000 / 1000 1,000 ML @ 80 mls/hr IVC . [id number] [facility] Rx#:[id number] Zosyn 3.375 GM In 0.9 % Sodium 100 / 100 Chloride (Mini-Bag +) 100 ML @ 25 mls/hr IVPB Q8H [facility] Rx#: [id number] Oral 0 / 0 0 / 0 0 / 0 Output: Urine 375 / 375 350 / 350 Other: Meal NPO NPO npo Percent of Meal Consumed 0% 0% Weight 147.2 kg Blood Glucose* 195 173 Patient Weight 10/10/17 23:59 Weight 147.2 kg - Labs 10/10/17 05:14 10/10/17 05:14 Diabetes panel 10/09/17 10/10/17 Range/Units 11:37 05:14 Sodium 132 L 132 L (136-145) mEq/L Potassium 4.2 3.5 (3.5-5.1) mEq/L Chloride 95 L 96 L (98-107) mEq/L Carbon Dioxide 28 28 (23-29) mEq/L BUN 16 22 H (6-20) mg/dL Creatinine 0.74 0.76 (0.70-1.30) mg/dL Glucose 203 H 197 H (70-105) mg/dL Calcium 9.1 8.9 (8.6-10.3) mg/dL Calcium panel 10/09/17 10/10/17 10/10/17 Range/Units 11:37 05:14 05:14 Calcium 9.1 8.9 (8.6-10.3) mg/dL Phosphorus 3.4 (2.7-4.5) mg/dL Pituitary panel 10/09/17 10/10/17 Range/Units 11:37 05:14 Sodium 132 L 132 L (136-145) mEq/L Potassium 4.2 3.5 (3.5-5.1) mEq/L Chloride 95 L 96 L (98-107) mEq/L Carbon Dioxide 28 28 (23-29) mEq/L BUN 16 22 H (6-20) mg/dL Creatinine 0.74 0.76 (0.70-1.30) mg/dL Glucose 203 H 197 H (70-105) mg/dL Calcium 9.1 8.9 (8.6-10.3) mg/dL Adrenal panel 10/09/17 10/10/17 Range/Units 11:37 05:14 Sodium 132 L 132 L (136-145) mEq/L Potassium 4.2 3.5 (3.5-5.1) mEq/L Chloride 95 L 96 L (98-107) mEq/L Carbon Dioxide 28 28 (23-29) mEq/L BUN 16 22 H (6-20) mg/dL Creatinine 0.74 0.76 (0.70-1.30) mg/dL Glucose 203 H 197 H (70-105) mg/dL Calcium 9.1 8.9 (8.6-10.3) mg/dL - VTE Documentation of Mechanical Device: Intermittent pneumatic compression device Consult Discharge Plan - Plan Referrals: Kenny Regan MD [Non-Partnered Physician] -
[2017-10-10] MEDS: Lisinopril-HCTZ 20-12.5mg TABLET PO SCH (11:51)
[2017-10-10] MEDS: *HR* Promethazine 25 MG/ML VIAL IVP PRN (21:19)
[2017-10-11] MEDS: Ondansetron 4 MG/2 ML VIAL IVP PRN ×2 (01:00→23:24)
[2017-10-11] MEDS: *HR* OxyCODONE Immed Rel 5 MG TABLET PO PRN ×3 (01:00→21:15)
[2017-10-11] MEDS: Albuterol 2.5 MG/3 ML NEBULIZER IH SCH ×5 (04:02→20:38)
[2017-10-11] MEDS: *HR* Heparin 5,000 UNIT/ML VIAL SQ SCH ×3 (04:40→20:15)
[2017-10-11] MEDS: Piperacillin/Tazobactam 3.375 GM in 0.9 % Sodium Chloride Mini Bag 100 ML IVPB SCH ×3 (04:41→20:15)
[2017-10-11 08:19] LABS: Hematocrit 39.1 % (37.5-50.1); Hemoglobin 13.1 g/dL (12.9-16.9); Mean Corpuscular HGB Conc 33.5 g/dL (31.6-35.5); Mean Corpuscular Hemoglobin 28.8 pg (28.0-33.3); Mean Corpuscular Volume 85.9 fL (83.0-100.0); Mean Platelet Volume 9.2 fL (9.4-12.4); Platelet Count 471 K/mcL (140-400); Red Blood Count 4.55 M/mcL (4.19-5.50); Red Cell Distribution Width 12.2 % (11.5-14.5)
[2017-10-11] MEDS: *HR* Promethazine 25 MG/ML VIAL IVP PRN ×2 (08:21→21:15)
[2017-10-11] MEDS: Lisinopril-HCTZ 20-12.5mg TABLET PO SCH (08:21)
[2017-10-11 10:05] LABS: Lymphocytes # 1.8 K/mcL (0.6-4.6); Monocytes # 0.9 K/mcL (0.0-1.3)
[2017-10-11 10:06] LABS: Polychromasia 1+ (Not Present); Toxic Granulation Present (Not Present)
--- NOTE | 2017-10-11 10:41 | General Surgery Progress Note ---
Date of Encounter: 10/11/17 Time of Encounter: 10:34 Subjective Patient reports: no new complaints (Still experiencing nausea after consuming liquids) Narrative: General Surgery - POD #4 The patient remains afebrile, heart rate still elevated ranging 92-105; respiratory rate 16; blood pressure 162. SPO2 on room air 95% The patient indicates abdominal pain is diminishing but he is still experiencing nausea after consuming clear liquids. No emesis. Lungs: Clear Abdomen: Soft with active bowel sounds; no flatus or BM. Port sites closed intact clean and dry; transverse incision in the right lower quadrant demonstrating purulent drainage. Several dolores (3) were removed from the central portion of the transverse incision; moderate purulent drainage resulted Fluffy gauze dressing applied Laboratories: White count continues to diminish slowly, 17.8 neutrophils remained elevated at 15%; hemoglobin 13.1, hematocrit 39.1. Platelet count 4 71 ,000. Potassium 3.4 Intraoperative pathology still pending Impression/plan: Postoperative day #4, status post laparoscopy converted to open appendectomy for acute perforated appendicitis. Leukocytosis slowly resolving but neutrophilia persists. Purulent superficial wound drainage - will obtain CT abdomen and pelvis to assess the peritoneal cavity. No peritoneal signs to my examination. Hypokalemia- will supplement orally Begin local wound care. Irrigate wound with half-strength hydrogen peroxide twice a day with dressing changes Continue IV Zosyn Maintain clear liquid diet due to the patient's persistent complaints of nausea; advance diet when nausea resolved and bowel function improved Objective Vital Signs - Last 8 Hours Temp Pulse Resp BP Pulse Ox 10/11/17 07:32 18 91 10/11/17 06:35 98.7 F 97 18 104/68 93 10/11/17 03:35 98.6 F 96 15 110/70 93 Intake and Output 10/10/17 10/11/17 10/11/17 23:59 07:59 15:59 Intake Total 1395 / 1395 124 / 124 Output Total 750 / 750 Balance 1395 / 1395 -626 / -626 Intake: IV Fluids 1195 / 1195 24 / 24 D5% And 0.45% Nacl 1000 Ml Bag 1119 / 1119 1,000 ML @ 50 mls/hr IVC .Q20H [facility] Rx#:[id number] Zosyn 3.375 GM In 0.9 % Sodium 76 / 76 24 / 24 Chloride (Mini-Bag +) 100 ML @ 25 mls/hr IVPB Q8H [facility] Rx#: [id number] Oral 200 / 200 100 / 100 Output: Urine 750 / 750 Other: Meal Dinner Percent of Meal Consumed 10% # Bowel Movements 0 - Labs 10/11/17 07:36 10/11/17 05:13 Diabetes panel 10/11/17 Range/Units 05:13 Potassium 3.4 L (3.5-5.1) mEq/L Pituitary panel 10/11/17 Range/Units 05:13 Potassium 3.4 L (3.5-5.1) mEq/L Adrenal panel 10/11/17 Range/Units 05:13 Potassium 3.4 L (3.5-5.1) mEq/L - VTE Documentation of Mechanical Device: Intermittent pneumatic compression device Consult Discharge Plan - Plan Referrals: Kenny Regan MD [Non-Partnered Physician] -
[2017-10-11] MEDS ORDERED: Isovue-370 500 ML INFUS..BTL IV ONE (10:42)
[2017-10-11] MEDS: D5% in 0.45% NACL 1,000 ML IVC SCH (16:50)
[2017-10-12] MEDS: Albuterol 2.5 MG/3 ML NEBULIZER IH SCH ×7 (00:36→23:39)
[2017-10-12] MEDS: *HR* Heparin 5,000 UNIT/ML VIAL SQ SCH ×3 (03:53→20:43)
[2017-10-12] MEDS: *HR* Promethazine 25 MG/ML VIAL IVP PRN (03:53)
[2017-10-12] MEDS: Piperacillin/Tazobactam 3.375 GM in 0.9 % Sodium Chloride Mini Bag 100 ML IVPB SCH ×3 (03:54→18:43)
[2017-10-12 05:08] LABS: Basophils # 0.1 K/mcL (0.0-0.2); Basophils % 0.5 %; Eosinophils # 0.2 K/mcL (0.0-0.6); Eosinophils % 0.9 %; Hemoglobin 12.4 g/dL (12.9-16.9); Immature Granulocytes % 2.9 % (0-4); Lymphocytes # 1.7 K/mcL (0.6-4.6); Lymphocytes % 10.9 %; Mean Corpuscular HGB Conc 34.4 g/dL (31.6-35.5); Mean Corpuscular Volume 84.3 fL (83.0-100.0); Mean Platelet Volume 8.9 fL (9.4-12.4); Monocytes # 1.4 K/mcL (0.0-1.3); Monocytes % 8.6 %; Neutrophils # 12.2 K/mcL (1.6-8.9); Platelet Count 428 K/mcL (140-400); Red Blood Count 4.27 M/mcL (4.19-5.50); Red Cell Distribution Width 11.9 % (11.5-14.5); Segmented Neutrophils % 76.2 %
[2017-10-12 05:24] LABS: BUN/Creatinine Ratio 17 (6-26); Blood Urea Nitrogen 11 mg/dL (6-20); Calcium 8.5 mg/dL (8.6-10.3); Carbon Dioxide 28 mEq/L (23-29); Chloride 95 mEq/L (98-107); Glucose 173 mg/dL (70-105); Osmolality,Calculated 278 (280-300); Potassium 3.8 mEq/L (3.5-5.1); Sodium 132 mEq/L (136-145); eGFR For African Americans > 60 (> 60); eGFR For Non-African Americans > 60 (> 60)
[2017-10-12] MEDS: Ondansetron 4 MG/2 ML VIAL IVP PRN (06:18)
[2017-10-12] MEDS: Lisinopril-HCTZ 20-12.5mg TABLET PO SCH (09:17)
[2017-10-12] MEDS: D5% in 0.45% NACL 1,000 ML IVC SCH (11:25)
[2017-10-12] MEDS ORDERED: D5% in 0.45% NACL 1,000 ML IVC SCH (11:32)
--- NOTE | 2017-10-12 11:46 | General Surgery Progress Note ---
Date of Encounter: 10/12/17 Time of Encounter: 11:33 Subjective Patient reports: feels better, flatus Narrative: General Surgery - POD #5 Patient feeling better this morning despite an episode of emesis; he describes feeling "the best he has in a week" Maximum temperature 99.7; pulse 94 (range 91-103); respiratory rate 16, blood pressure 124/80. SPO2 on room air 92-97%. Lungs: Clear; no obvious abdominal pain on deep inspiration Abdomen: Protuberant but soft, nontender with active bowel sounds. The patient is passing copious flatus. No bowel movement yet Port sites remain intact, clean and dry Transverse incision improved; erythema has resolved, drainage is diminished and is now more serous. Urine output: Approximately 2 L in the last 24 hours Laboratories: White count continues to diminish, 16,000 with 12.2% neutrophils; hemoglobin 12.4, hematocrit 36.0. Sodium 132, hypokalemia has corrected to 3.8. Chloride 95, BUN [address], [address] abdomen/pelvis - was personally reviewed with [facility] - findings include segmental airspace opacities in both lung bases consistent with atelectasis; mild dilatation of the proximal small bowel; diverticulosis involving the left hemicolon; ill-defined gas and fluid collection in the right paracolic gutter with thickening and luminal narrowing of several adjacent loops of small bowel. There is insufficient fluid to consider drainage and the fluid may still be residual from the acute inflammatory process 5 days ago. Impression: Postoperative day #5 Acceptable progress; leukocytosis continues to resolve; the patient is clinically feeling better. Continue Zosyn and local wound care. Hypokalemia- corrected Hyponatremia without obvious sequela Plan: Advance diet to fulls Continue to monitor his CBC Reduce potassium supplementation from twice a day to once daily Objective Vital Signs - Last 8 Hours Temp Pulse Resp BP Pulse Ox 10/12/17 10:45 98.5 F 94 16 124/80 93 10/12/17 07:43 16 97 10/12/17 07:12 97.6 F 91 16 153/84 92 10/12/17 03:47 99.6 F 103 16 135/84 93 Intake and Output 10/11/17 10/12/17 10/12/17 23:59 07:59 15:59 Intake Total 340 / 340 320 / 320 950 / 950 Output Total 600 / 600 400 / 400 50 / 50 Balance -260 / -260 -80 / -80 900 / 900 Intake: IV Fluids 100 / 100 200 / 200 950 / 950 D5% And 0.45% Nacl 1000 Ml Bag 950 / 950 1,000 ML @ 60 mls/hr IVC . [id number] [facility] Rx#:[id number] Zosyn 3.375 GM In 0.9 % Sodium 100 / 100 200 / 200 Chloride (Mini-Bag +) 100 ML @ 25 mls/hr IVPB Q8H [facility] Rx#: [id number] Oral 240 / 240 120 / 120 Output: Urine 600 / 600 400 / 400 0 / 0 Emesis 50 / 50 Other: # Bowel Movements 0 0 - Labs 10/12/17 04:50 10/12/17 04:50 Diabetes panel 10/12/17 Range/Units 04:50 Sodium 132 L (136-145) mEq/L Potassium 3.8 (3.5-5.1) mEq/L Chloride 95 L (98-107) mEq/L Carbon Dioxide 28 (23-29) mEq/L BUN 11 (6-20) mg/dL Creatinine 0.63 L (0.70-1.30) mg/dL Glucose 173 H (70-105) mg/dL Calcium 8.5 L (8.6-10.3) mg/dL Calcium panel 10/12/17 Range/Units 04:50 Calcium 8.5 L (8.6-10.3) mg/dL Pituitary panel 10/12/17 Range/Units 04:50 Sodium 132 L (136-145) mEq/L Potassium 3.8 (3.5-5.1) mEq/L Chloride 95 L (98-107) mEq/L Carbon Dioxide 28 (23-29) mEq/L BUN 11 (6-20) mg/dL Creatinine 0.63 L (0.70-1.30) mg/dL Glucose 173 H (70-105) mg/dL Calcium 8.5 L (8.6-10.3) mg/dL Adrenal panel 10/12/17 Range/Units 04:50 Sodium 132 L (136-145) mEq/L Potassium 3.8 (3.5-5.1) mEq/L Chloride 95 L (98-107) mEq/L Carbon Dioxide 28 (23-29) mEq/L BUN 11 (6-20) mg/dL Creatinine 0.63 L (0.70-1.30) mg/dL Glucose 173 H (70-105) mg/dL Calcium 8.5 L (8.6-10.3) mg/dL - VTE Documentation of Mechanical Device: Intermittent pneumatic compression device Consult Discharge Plan - Plan Referrals: Kenny Regan MD [Non-Partnered Physician] -
[2017-10-13] MEDS: Piperacillin/Tazobactam 3.375 GM in 0.9 % Sodium Chloride Mini Bag 100 ML IVPB SCH ×3 (03:25→18:50)
[2017-10-13] MEDS: *HR* Heparin 5,000 UNIT/ML VIAL SQ SCH ×3 (03:25→20:07)
[2017-10-13] MEDS: Albuterol 2.5 MG/3 ML NEBULIZER IH SCH ×6 (03:51→23:54)
[2017-10-13 04:48] LABS: Basophils # 0.1 K/mcL (0.0-0.2); Basophils % 0.6 %; Eosinophils # 0.1 K/mcL (0.0-0.6); Hematocrit 35.6 % (37.5-50.1); Immature Granulocytes % 3.6 % (0-4); Lymphocytes # 1.9 K/mcL (0.6-4.6); Mean Corpuscular HGB Conc 33.7 g/dL (31.6-35.5); Mean Corpuscular Hemoglobin 28.8 pg (28.0-33.3); Mean Corpuscular Volume 85.6 fL (83.0-100.0); Monocytes # 1.2 K/mcL (0.0-1.3); Monocytes % 8.4 %; Neutrophils # 10.6 K/mcL (1.6-8.9); Platelet Count 393 K/mcL (140-400); Red Blood Count 4.16 M/mcL (4.19-5.50); Segmented Neutrophils % 73.4 %
[2017-10-13] MEDS: Lisinopril-HCTZ 20-12.5mg TABLET PO SCH (09:01)
--- NOTE | 2017-10-13 13:37 | General Surgery Progress Note ---
Date of Encounter: 10/13/17 Time of Encounter: 13:25 Subjective Narrative: General Surgery - POD #6 Patient complaining of nausea but no emesis; remains afebrile, HR 96-99; aspiratory rate 16, blood pressure 105/70. Lungs: Clear; no abdominal pain and deep inspiration Abdomen: Protuberant, soft, nontender. Active bowel sounds. The patient has had several diarrheal bowel movements overnight. Port sites intact; transverse incision right lower quadrant without erythema and drainage appears to be markedly diminished. Patient tolerating full liquids despite nausea Urine output: 800 mL for calendar day 10/12/17; 600 mL so far today Laboratories: Leukocytosis continues to improve, white count 14.5, neutrophils diminished to 10.6%, hemoglobin 12.0, hematocrit 35.6. Pathology confirmed the clinical diagnosis acute appendicitis with acute fibrinopurulent periappendicitis. In the body of the path report is a described multiple fragments of the appendix consistent with the operative description of acute perforated appendicitis. Impression: Postoperative day 6 status post laparoscopy converted to open appendectomy for acute perforated appendicitis. Slow/prolonged postoperative recovery. Slowly resolving leukocytosis and acute inflammatory changes within the peritoneum. Superficial inflammation of the transverse colon in the right lower quadrant resolving Plan: Advance diet Continue IV Zosyn. Objective Vital Signs - Last 8 Hours Temp Pulse Resp BP Pulse Ox 10/13/17 10:52 16 95 10/13/17 10:20 97.8 F 73 16 105/70 95 10/13/17 07:36 16 91 10/13/17 06:45 98.4 F 93 16 118/77 92 Intake and Output 10/12/17 10/13/17 10/13/17 23:59 07:59 15:59 Intake Total 340 / 340 220 / 220 100 / 100 Output Total 400 / 400 400 / 400 200 / 200 Balance -60 / -60 -180 / -180 -100 / -100 Intake: IV Fluids 100 / 100 100 / 100 Zosyn 3.375 GM In 0.9 % Sodium 100 / 100 100 / 100 Chloride (Mini-Bag +) 100 ML @ 25 mls/hr IVPB Q8H [facility] Rx#: [id number] Oral 240 / 240 220 / 220 Output: Urine 400 / 400 400 / 400 200 / 200 Other: Meal Dinner Percent of Meal Consumed 10% # Voids 1 # Bowel Movements 0 0 0 - Labs 10/13/17 04:22 10/12/17 04:50 - VTE Documentation of Mechanical Device: Intermittent pneumatic compression device Consult Discharge Plan - Plan Referrals: Kenny Regan MD [Non-Partnered Physician] -
[2017-10-13] MEDS ORDERED: *HR* OxyCODONE Immed Rel 5 MG TABLET PO PRN (13:39)
[2017-10-14] MEDS: *HR* Heparin 5,000 UNIT/ML VIAL SQ SCH ×3 (03:56→20:21)
[2017-10-14] MEDS: Piperacillin/Tazobactam 3.375 GM in 0.9 % Sodium Chloride Mini Bag 100 ML IVPB SCH ×2 (03:56→11:20)
[2017-10-14] MEDS: Albuterol 2.5 MG/3 ML NEBULIZER IH SCH ×6 (04:20→23:20)
[2017-10-14 04:49] LABS: Basophils # 0.1 K/mcL (0.0-0.2); Basophils % 0.8 %; Eosinophils # 0.2 K/mcL (0.0-0.6); Eosinophils % 1.1 %; Hemoglobin 12.4 g/dL (12.9-16.9); Immature Granulocytes % 4.6 % (0-4); Lymphocytes # 1.7 K/mcL (0.6-4.6); Lymphocytes % 12.2 %; Mean Corpuscular HGB Conc 33.5 g/dL (31.6-35.5); Mean Corpuscular Hemoglobin 28.6 pg (28.0-33.3); Mean Corpuscular Volume 85.5 fL (83.0-100.0); Mean Platelet Volume 9.2 fL (9.4-12.4); Monocytes # 1.2 K/mcL (0.0-1.3); Monocytes % 8.2 %; Neutrophils # 10.2 K/mcL (1.6-8.9); Platelet Count 406 K/mcL (140-400); Red Blood Count 4.33 M/mcL (4.19-5.50); Red Cell Distribution Width 11.9 % (11.5-14.5); Segmented Neutrophils % 73.1 %
[2017-10-14 05:03] LABS: BUN/Creatinine Ratio 18 (6-26); Blood Urea Nitrogen 11 mg/dL (6-20); Calcium 8.8 mg/dL (8.6-10.3); Carbon Dioxide 26 mEq/L (23-29); Chloride 98 mEq/L (98-107); Glucose 133 mg/dL (70-105); Osmolality,Calculated 277 (280-300); Potassium 4.1 mEq/L (3.5-5.1); Sodium 133 mEq/L (136-145); eGFR For African Americans > 60 (> 60); eGFR For Non-African Americans > 60 (> 60)
[2017-10-14] MEDS: Lisinopril-HCTZ 20-12.5mg TABLET PO SCH (08:21)
[2017-10-14] MEDS: D5% in 0.45% NACL 1,000 ML IVC SCH (08:59)
--- NOTE | 2017-10-14 13:39 | General Surgery Progress Note ---
Date of Encounter: 10/14/17 Time of Encounter: 13:15 Subjective Patient reports: feels better Narrative: General Surgery - POD #7 Patient continues to feel better on daily basis; denies abdominal pain, wound drainage described as serous Patient has remained afebrile; pulse 92, respirations 16, blood pressure 114/ 71. Lungs: Clear no obvious abdominal pain with deep inspiration Abdomen: Protuberant but soft, nontender. No obvious intra-abdominal masses though exam is limited by body habitus Dressing/transverse incision right lower quadrant intact with minimal staining on the dressing Active bowel sounds. Patient describes diarrhea but it is becoming more solid Laboratories: Leukocytosis slowly resolving, 14.0, hemoglobin stable at 12.4, hematocrit 37.0. Neutrophils also improved to 10.2 (previously 10.6) Impression: Postoperative day 7, status post laparoscopy converted to open appendectomy for acute perforated appendicitis Patient continues to improve Plan: Change IV Zosyn to Augmentin 500 mg by mouth 3 times a day and metronidazole 500 mg by mouth 3 times a day Objective Vital Signs - Last 8 Hours Temp Pulse Resp BP Pulse Ox 10/14/17 11:33 98 F 98 16 121/80 95 10/14/17 11:13 16 98 10/14/17 08:24 99 10/14/17 07:38 16 99 10/14/17 07:17 98 F 92 16 114/71 93 Intake and Output 10/13/17 10/14/17 10/14/17 23:59 07:59 15:59 Intake Total 340 / 340 440 / 440 700 / 700 Output Total 450 / 450 650 / 650 550 / 550 Balance -110 / -110 -210 / -210 150 / 150 Intake: IV Fluids 100 / 100 100 / 100 Zosyn 3.375 GM In 0.9 % Sodium 100 / 100 100 / 100 Chloride (Mini-Bag +) 100 ML @ 25 mls/hr IVPB Q8H [facility] Rx#: [id number] Oral 240 / 240 440 / 440 600 / 600 Output: Urine 450 / 450 650 / 650 550 / 550 Other: Meal Dinner Breakfast Percent of Meal Consumed 20% 100% # Voids 0 # Bowel Movements 0 - Labs 10/14/17 04:19 10/14/17 04:19 Diabetes panel 10/14/17 Range/Units 04:19 Sodium 133 L (136-145) mEq/L Potassium 4.1 (3.5-5.1) mEq/L Chloride 98 (98-107) mEq/L Carbon Dioxide 26 (23-29) mEq/L BUN 11 (6-20) mg/dL Creatinine 0.61 L (0.70-1.30) mg/dL Glucose 133 H (70-105) mg/dL Calcium 8.8 (8.6-10.3) mg/dL Calcium panel 10/14/17 Range/Units 04:19 Calcium 8.8 (8.6-10.3) mg/dL Pituitary panel 10/14/17 Range/Units 04:19 Sodium 133 L (136-145) mEq/L Potassium 4.1 (3.5-5.1) mEq/L Chloride 98 (98-107) mEq/L Carbon Dioxide 26 (23-29) mEq/L BUN 11 (6-20) mg/dL Creatinine 0.61 L (0.70-1.30) mg/dL Glucose 133 H (70-105) mg/dL Calcium 8.8 (8.6-10.3) mg/dL Adrenal panel 10/14/17 Range/Units 04:19 Sodium 133 L (136-145) mEq/L Potassium 4.1 (3.5-5.1) mEq/L Chloride 98 (98-107) mEq/L Carbon Dioxide 26 (23-29) mEq/L BUN 11 (6-20) mg/dL Creatinine 0.61 L (0.70-1.30) mg/dL Glucose 133 H (70-105) mg/dL Calcium 8.8 (8.6-10.3) mg/dL - VTE Documentation of Mechanical Device: Intermittent pneumatic compression device Consult Discharge Plan - Plan Referrals: Kenny Regan MD [Non-Partnered Physician] -
[2017-10-14] MEDS: metroNIDAZOLE 500 MG TABLET PO SCH ×2 (15:22→20:21)
[2017-10-14] MEDS: Amoxicillin/Clavulanate 500 MG TABLET PO SCH ×2 (15:22→20:21)
[2017-10-15] MEDS: Albuterol 2.5 MG/3 ML NEBULIZER IH SCH ×3 (04:21→12:08)
[2017-10-15] MEDS: *HR* Heparin 5,000 UNIT/ML VIAL SQ SCH (04:29)
[2017-10-15 07:16] LABS: Hematocrit 39.4 % (37.5-50.1); Hemoglobin 13.3 g/dL (12.9-16.9); Mean Corpuscular HGB Conc 33.8 g/dL (31.6-35.5); Mean Corpuscular Hemoglobin 28.8 pg (28.0-33.3); Mean Corpuscular Volume 85.3 fL (83.0-100.0); Mean Platelet Volume 9.1 fL (9.4-12.4); Platelet Count 403 K/mcL (140-400); Red Blood Count 4.62 M/mcL (4.19-5.50); Red Cell Distribution Width 12.2 % (11.5-14.5)
[2017-10-15 07:59] LABS: Monocytes # 0.6 K/mcL (0.0-1.3); Neutrophils # 11.3 K/mcL (1.6-8.9)
[2017-10-15 08:00] LABS: Platelet Estimate Normal (Normal)
[2017-10-15] MEDS: metroNIDAZOLE 500 MG TABLET PO SCH (08:10)
[2017-10-15] MEDS: Lisinopril-HCTZ 20-12.5mg TABLET PO SCH (08:10)
[2017-10-15] MEDS: Amoxicillin/Clavulanate 500 MG TABLET PO SCH (08:10)
[2017-10-15 08:46] VITALS: BP 102/71
--- NOTE | 2017-10-15 11:53 | General Surgery Progress Note ---
Date of Encounter: 10/15/17 Time of Encounter: 11:39 Subjective Patient reports: no new complaints, tolerating a regular diet Narrative: General Surgery - POD #8 Progress Note / Discharge summary Patient feeling well, voicing no complaints. Afebrile, most recently 98.1, pulse 98, respirations 16, blood pressure 102/71 Tolerating regular diet; no nausea or vomiting. Diarrhea persists but is diminishing Lungs: Clear, no abdominal pain on deep inspiration Abdomen: Protuberant (likely baseline); no tenderness. Transverse incision in the right lower quadrant without erythema; minimal persistent seropurulent drainage. No obvious subcutaneous fluid, no increased drainage on manipulation. Laboratories: Slightly increased leukocytosis 14.8 (previously 14.0) with increased neutrophilia 11.3 (previously 10.2) Impression: Postoperative day 8, status post laparoscopy converted to open appendectomy for acute perforated appendicitis. Satisfactory postoperative state with resolution of abdominal pain. Superficial infection transverse incision right lower quadrant. No obvious peritonitis, peritoneal signs/rebound Plan: Discharge home Continue oral antibiotics (Augmentin and metronidazole) Outpatient follow-up in my office, 10/17/17 Brief history: 42-year-old patient referred to surgical services after presenting to [facility] emergency department with 4-5 day history of progressive right lower quadrant abdominal pain. The patient describes pain as beginning vaguely in the midline but slowly increasing severity and migrating to the right lower quadrant. Patient experienced multiple episodes of emesis prior to presenting to the emergency department. On presentation to the emergency department patient was found to have local tenderness in the right lower quadrant, leukocytosis 19.8 with 16.9% neutrophils. CT demonstrated a likely left renal neoplasm measuring 7.9 x 7.3 x 7.4 cm along with a dilated, 12 mm appendix with extensive periappendiceal inflammatory changes and fat stranding. Adjacent fluid/abscess was also described. The patient was referred for surgical evaluation. He was evaluated and surgery was recommended. Laparoscopy converted to open appendectomy was completed on . An acutely inflamed, perforated appendicitis was encountered. The patient tolerated the procedure well and his postoperative course was fairly unremarkable. He continued to demonstrate tachycardia and a persistent leukocytosis for which CT of the abdomen/pelvis was repeated on 10/11/17. Findings included a small amount ill-defined gas and fluid within the right paracolic gutter as well as redemonstration of the left renal mass. The patient developed inflammation and drainage from the transverse incision in the right lower quadrant. On removal of skin dolores and opening of the middle portion of this incision a copious amount of seropurulent fluid was evacuated. This was deemed to be the source of the patient's persistent leukocytosis. The patient continued to improve with resolution of his abdominal pain, return of bowel function, and resumption of diet. The patient was discharged home in good physical condition on 10/15/17. White count was 14.8 with 11.3% neutrophils. Antibiotics were continued post discharge and he will follow-up in my office in 2 days. Discharge diagnoses: Acute perforated appendicitis with periappendiceal abscess Superficial wound infection, transverse incision right lower quadrant Obesity Hypertension Objective Vital Signs - Last 8 Hours Temp Pulse Resp BP Pulse Ox 10/15/17 08:45 98.1 F 98 16 102/71 93 10/15/17 08:17 93 10/15/17 07:40 18 93 10/15/17 04:21 17 95 10/15/17 03:44 97.7 F 86 14 136/71 95 Intake and Output 10/14/17 10/15/17 10/15/17 23:59 07:59 15:59 Intake Total 100 / 100 0 / 0 750 / 750 Output Total 1800 / 1800 1000 / 1000 0 / 0 Balance -1700 / -1700 -1000 / -1000 750 / 750 Intake: IV Fluids 100 / 100 Zosyn 3.375 GM In 0.9 % Sodium 100 / 100 Chloride (Mini-Bag +) 100 ML @ 25 mls/hr IVPB Q8H [facility] Rx#: [id number] Oral 0 / 0 0 / 0 750 / 750 Output: Urine 1800 / 1800 1000 / 1000 0 / 0 Other: Weight 142.882 kg Patient Weight 10/15/17 23:59 Weight 142.882 kg - Labs 10/15/17 06:19 10/14/17 04:19 - VTE Documentation of Mechanical Device: Intermittent pneumatic compression device Consult Discharge Plan - Plan Referrals: Kenny Regan MD [Non-Partnered Physician] -
--- NOTE | 2017-10-15 11:57 | Discharge Summary ---
Outpatient Proc Discharge Plan - Plan Additional Instructions: Regular diet Activity as tolerated; lifting limited to less than 20 pounds Patient may shower, wash incisions with soap and water Tylenol, ibuprofen, Motrin, Advil, Aleve, etc. as needed for pain Prescriptions for Augmentin and metronidazole provided Follow-up in the office, 10/17/17; patient to call office the a.m. of 10/17/17 to make this appointment Prescriptions: Amoxicillin/Clavulanate [Augmentin] 500 mg PO TID #9 tablet metroNIDAZOLE [Flagyl] 500 mg PO TID #9 tablet Home Medications: Lisinopril/Hydrochlorothiazide [Zestoretic 20-12.5 mg Tablet] 2 each PO DAILY [History] Acetaminophen [Tylenol] 650 mg PO Q6HR PRN tablet 10/15/17 [Rx] Amoxicillin/Clavulanate [Augmentin] 500 mg PO TID #9 tablet 10/15/17 [Rx] metroNIDAZOLE [Flagyl] 500 mg PO TID #9 tablet 10/15/17 [Rx]
--- NOTE | 2017-10-15 12:02 | Discharge Summary ---
Outpatient Proc Discharge Plan - Plan Additional Instructions: Regular diet Activity as tolerated; lifting limited to less than 20 pounds Patient may shower, wash incisions with soap and water Tylenol, ibuprofen, Motrin, Advil, Aleve, etc. as needed for pain Prescriptions for Augmentin and metronidazole provided Follow-up in the office, 10/17/17; patient to call office the a.m. of 10/17/17 to make this appointment Prescriptions: Amoxicillin/Clavulanate [Augmentin] 500 mg PO TID #12 tablet metroNIDAZOLE [Flagyl] 500 mg PO TID #12 tablet Home Medications: Lisinopril/Hydrochlorothiazide [Zestoretic 20-12.5 mg Tablet] 2 each PO DAILY [History] Acetaminophen [Tylenol] 650 mg PO Q6HR PRN tablet 10/15/17 [Rx] Amoxicillin/Clavulanate [Augmentin] 500 mg PO TID #12 tablet 10/15/17 [Rx] metroNIDAZOLE [Flagyl] 500 mg PO TID #12 tablet 10/15/17 [Rx]
== END 2017-10-15 12:33 | disposition home or self-care (01) | DRG 339 ==
LOC: EMEROO 00:50 → 3ANU 00:50
PROVIDERS: ADMIT Surgery; ATTEND Surgery
PROC: GENAPPY (ICD-10-PCS; 2017-10-07 17:30)